=== PATIENT | male | born 2000 | race Caucasian/White ===

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

== ENCOUNTER 2019-03-31 08:21 | Emergency (ER) | payer BC, OTHER ==
[~2019-03-31] VITALS: Ht 182.9 cm; Wt 99.1 kg
--- NOTE | 2019-03-31 08:40 | NUR ---
PT TO ED FOR MULTIPLE TUNNELED VISION, HOT/COLD FLASHES AND DIZZINESS EPISODES OVER LAST 2 DAYS FOLLOWING WISDOM TEETH REMOVAL ON THURSDAY (5 DAYS AGO). PT HAS BEEN TAKING ORDERED PERCOCET WITH NO ISSUES SINCE YESTERDAY. PT STATES HE DISCONTINUED PERCOCET IN HOPES THAT THE NEAR EPISODES WOULD STOP, BUT THEY HAVE CONTINUED. PT CONNECTED TO [facility]. VSS. EDPA TO BS. AWAITING ORDERS.
--- NOTE | 2019-03-31 09:15 | NUR ---
REPORT FROM NORMAN MARTI, ASSUME CARE OF PT AT THIS TIME. PT ON HEART MONITOR, BP CUFF, PULSE OX. VSS. AWAITING CXR AND LAB RESULTS.
[2019-03-31 09:18] LABS: BASOPHILS # (AUTO) 0.07 x10^3/uL (0-0.3); BASOPHILS % (AUTO) 1 % (0-1); EOSINOPHILS # (AUTO) 0.13 x10^3/uL (0-0.8); EOSINOPHILS % (AUTO) 1 % (1-7); LYMPHOCYTES % (AUTO) 12 % (22-44); MD NO; MEAN CORPUSCULAR HEMOGLOBIN 29.3 pg (27.5-34.5); MEAN CORPUSCULAR HGB CONC 33.4 g/dL (33.2-36.2); MEAN CORPUSCULAR VOLUME 87.6 fL (81-97); MEAN PLATELET VOLUME 8.1 fL (7.4-10.4); MONOCYTES # (AUTO) 1.06 x10^3/uL (0-1.4); MONOCYTES % (AUTO) 8 % (2-9); NEUTROPHILS % (AUTO) 79 % (42-75); PLATELET COUNT 244 x10^3/uL (130-400); RED BLOOD COUNT 4.86 x10^6/uL (4.38-5.82); RED CELL DISTRIBUTION WIDTH 12.4 % (9.4-14.8)
[2019-03-31 09:28] LABS: ALBUMIN 4.3 g/dL (3.4-5.0); ANION GAP 6 mmol/L (5-15); CALCIUM 9.4 mg/dL (8.5-10.1); CHLORIDE 107 mmol/L (98-107); CREATININE 0.93 mg/dL (0.7-1.3)
[2019-03-31 09:38] VITALS: BP 112/65
--- NOTE | 2019-03-31 09:40 | NUR ---
ORTHOSTATIC VS COMPLETED. PT DIZZY WITH POSITIONAL CHANGES, NO SYNCOPE OR NEAR SYNCOPE. ALL RESULTS BACK, PT FOR RECHECK.
[2019-03-31] MEDS ORDERED: MECLIZINE CHEWABLE 25 MG TAB PO ONE (10:00)
[2019-03-31] MEDS ORDERED: MECLIZINE CHEWABLE 25 MG TAB ONE (10:03)
--- NOTE | 2019-03-31 10:08 | NUR ---
MECLIZINE GIVEN PER ERP ORDER. AWAITING DISCHARGE PAPERWORK.
== END 2019-03-31 10:19 | disposition home or self-care (01) ==
LOC: ED 10:14
DX: R55 Syncope and collapse (principal); R42 Dizziness and giddiness; Z90.49 Acquired absence of other specified parts of digestive tract
CPT/HCPCS: 36415; 71046; 80048; 82040; 85025; 93005; 99284